=== PATIENT | female | born 1955 | race Caucasian/White ===

== ENCOUNTER 2016-07-09 10:04 | Inpatient (IN) | payer MEDICARE, MEDICAID ==
[~2016-07-09] VITALS: Ht 165.1 cm; Wt 76.7 kg
[~2016-07-09 10:04] MED LIST: DSS100 PO; HALO5 PO; LEVO25TA9 PO; LOVA20 PO; OLAN20TA2 PO; OXYB5 PO
[2016-07-09 16:36] VITALS: BP 120/82
[2016-07-09] MEDS ORDERED: ZOLPIDEM TARTRATE 10 MG TABLET PO PRN (17:15)
[2016-07-09 17:30] VITALS: BP 124/74
[2016-07-09] MEDS ORDERED: GLUCAGON,HUMAN RECOMBINANT 1 MG VIAL IM PRN (19:30)
[2016-07-09 19:39] LABS: GLUCOSE,POINT OF CARE 119 MG/DL (70-110)
[2016-07-09] MEDS: OLANZapine 10 MG TABLET PO SCH (20:54)
[2016-07-09] MEDS: HALOPERIDOL 5 MG TABLET PO SCH (20:54)
[2016-07-09] MEDS: LOVASTATIN 20 MG TABLET PO SCH (22:01)
[2016-07-10] MEDS ORDERED: -PHARMACY VACCINE NOTE- MISC ONE ×2 (00:15)
[2016-07-10] MEDS ORDERED: PNEUMOCOCCAL VACCINE POLYVALENT 0.5 ML VIAL [PPSV23] IM ONE (00:15)
[2016-07-10] MEDS: LEVOTHYROXINE SODIUM 100 MCG TABLET PO SCH (06:47)
[2016-07-10 06:55] VITALS: BP 130/72
[2016-07-10 07:04] LABS: GLUCOSE,POINT OF CARE 103 MG/DL (70-110)
[2016-07-10] MEDS ORDERED: CloNIDine HCL 0.1 MG TABLET PO PRN (07:30)
[2016-07-10] MEDS ORDERED: ACETAMINOPHEN 325 MG TABLET PO PRN (07:30)
[2016-07-10] MEDS ORDERED: BENZOCAINE/MENTHOL LOZENGE MM PRN (07:30)
[2016-07-10] MEDS ORDERED: LOPERAMIDE HCL 2 MG CAPSULE PO PRN (07:30)
[2016-07-10] MEDS ORDERED: ALBUTEROL SULFATE HFA 90 MCG/PUFF 8 GM INHALER IH PRN (07:30)
[2016-07-10] MEDS ORDERED: ONDANSETRON HCL 4 MG TABLET PO PRN (07:30)
[2016-07-10] MEDS ORDERED: MAGNESIUM HYDROXIDE SUSPENSION 30 ML UDCUP PO PRN (07:30)
[2016-07-10] MEDS ORDERED: IBUPROFEN 600 MG TABLET PO PRN (07:30)
[2016-07-10] MEDS ORDERED: PETROLATUM,WHITE 71 GM JELLY TP PRN (07:30)
[2016-07-10] MEDS ORDERED: MAG HYDROX/AL HYDROX/SIMETH ES 30 ML SUSPENSION UDCUP PO PRN (07:30)
[2016-07-10] MEDS ORDERED: BACITRACIN 28.4 GM OINTMENT TP PRN (07:30)
[2016-07-10 08:05] LABS: BASOPHILS # (AUTO) 0.04 K/uL (0.00-0.20); BASOPHILS % (AUTO) 0.6 % (0.0-2.0); EOSINOPHILS # (AUTO) 0.42 K/uL (0.00-0.70); EOSINOPHILS % (AUTO) 6.73 % (1.0-6.0); HEMATOCRIT 41.9 % (36-46); HEMOGLOBIN 13.9 g/dL (12.0-16.0); LYMPHOCYTES # (AUTO) 1.7 K/uL (1.0-4.8); LYMPHOCYTES % (AUTO) 27.3 % (22.0-44.0); MEAN CORPUSCULAR HEMOGLOBIN 31.1 pg (26.0-34.0); MEAN CORPUSCULAR HGB CONC 33.3 G/dL (31.0-37.0); MEAN CORPUSCULAR VOLUME 94 fL (80-100); MONOCYTES # (AUTO) 0.6 K/uL (0.1-1.0); MONOCYTES % (AUTO) 10.2 % (2.0-9.0); NEUTROPHILS # (AUTO) 3.5 K/uL (1.8-7.7); NEUTROPHILS % (AUTO) 55.2 % (40.0-70.0); PLATELET COUNT (AUTO) 193 K/uL (150-450); RED BLOOD CELL COUNT(AUTO) 4.48 MIL/uL (4.00-5.20); WHITE BLOOD COUNT (AUTO) 6.3 K/uL (4.5-11.0)
[2016-07-10 08:28] LABS: HEMOGLOBIN A1C 5.5 % (4.5-6.2)
[2016-07-10 08:31] VITALS: BP 125/71
[2016-07-10 08:39] LABS: ANION GAP 8 mmol/L (8-16); CARBON DIOXIDE 28 mmol/L (22-29); CHLORIDE 107 mmol/L (98-107); SODIUM SERUM 143 mmol/L (136-145)
[2016-07-10 08:40] LABS: ALANINE AMINOTRANSFERASE 24 U/L (12-78); ALBUMIN 3.1 g/dL (3.4-5.0); ASPARTATE AMINOTRANSFERASE 22 U/L (15-37); BILIRUBIN,TOTAL 0.2 mg/dL (0.1-1.0); CALCIUM, TOTAL 8.6 mg/dL (8.8-10.5); CREATININE 0.89 mg/dL (0.60-1.30); GLOMERULAR FILTR. RATE CALC > 60 mL/min (>60); THYROID STIMULATING HORMONE 7.12 uIU/mL (0.36-3.74); TOTAL PROTEIN, SERUM 6.4 g/dL (6.4-8.2); UREA NITROGEN, BLOOD 17 mg/dL (7-18)
[2016-07-10] MEDS: CHOLECALCIFEROL (VIT D3) 1,000 UNITS TABLET PO SCH (09:39)
[2016-07-10] MEDS: DOCUSATE SODIUM 100 MG CAPSULE PO SCH (09:39)
[2016-07-10] MEDS: OXYBUTYNIN CHLORIDE 5 MG TABLET PO SCH ×2 (09:39→16:35)
[2016-07-10] MEDS: HALOPERIDOL 5 MG TABLET PO SCH ×2 (09:39→16:35)
[2016-07-10] MEDS: NYSTATIN 15 GM POWDER BOTTLE TP SCH ×2 (09:41→16:44)
[2016-07-10 16:28] VITALS: BP 122/96
[2016-07-10 16:52] LABS: GLUCOSE,POINT OF CARE 107 MG/DL (70-110)
[2016-07-10] MEDS: LORazepam 2 MG TABLET PO PRN (17:01)
[2016-07-10] MEDS: OLANZapine 10 MG TABLET PO SCH (20:22)
[2016-07-10] MEDS: LOVASTATIN 20 MG TABLET PO SCH (20:22)
[2016-07-11 06:22] LABS: GLUCOSE,POINT OF CARE 85 MG/DL (70-110)
[2016-07-11] MEDS: LEVOTHYROXINE SODIUM 100 MCG TABLET PO SCH (06:24)
[2016-07-11 08:04] VITALS: BP 130/76
[2016-07-11] MEDS: NYSTATIN 15 GM POWDER BOTTLE TP SCH ×2 (09:41→16:35)
[2016-07-11] MEDS: HALOPERIDOL 5 MG TABLET PO SCH ×2 (09:41→16:35)
[2016-07-11] MEDS: CHOLECALCIFEROL (VIT D3) 1,000 UNITS TABLET PO SCH (09:41)
[2016-07-11] MEDS: DOCUSATE SODIUM 100 MG CAPSULE PO SCH (09:41)
[2016-07-11] MEDS: LORazepam 2 MG TABLET PO PRN ×2 (09:42→16:58)
[2016-07-11] MEDS: OXYBUTYNIN CHLORIDE 5 MG TABLET PO SCH ×2 (09:42→16:35)
[2016-07-11 16:10] VITALS: BP 127/76
[2016-07-11 16:46] LABS: GLUCOSE,POINT OF CARE 135 MG/DL (70-110)
[2016-07-11] MEDS: LOVASTATIN 20 MG TABLET PO SCH (20:14)
[2016-07-11] MEDS: OLANZapine 10 MG TABLET PO SCH (20:14)
[2016-07-12 06:12] LABS: GLUCOSE,POINT OF CARE 103 MG/DL (70-110)
[2016-07-12] MEDS: LEVOTHYROXINE SODIUM 100 MCG TABLET PO SCH (06:21)
[2016-07-12 07:17] VITALS: BP 125/78
[2016-07-12 08:28] VITALS: BP 125/78
[2016-07-12] MEDS: CHOLECALCIFEROL (VIT D3) 1,000 UNITS TABLET PO SCH (08:32)
[2016-07-12] MEDS: NYSTATIN 15 GM POWDER BOTTLE TP SCH ×2 (08:32→16:10)
[2016-07-12] MEDS: DOCUSATE SODIUM 100 MG CAPSULE PO SCH (08:32)
[2016-07-12] MEDS: OXYBUTYNIN CHLORIDE 5 MG TABLET PO SCH ×2 (08:32→16:10)
[2016-07-12] MEDS: HALOPERIDOL 5 MG TABLET PO SCH ×2 (08:32→16:10)
[2016-07-12] MEDS: LORazepam 2 MG TABLET PO PRN ×2 (08:33→17:27)
[2016-07-12 16:00] VITALS: BP 128/71
[2016-07-12] MEDS: INSULIN ASPART 100 UNITS/ML SQ PRN (16:51)
[2016-07-12 17:02] LABS: GLUCOSE,POINT OF CARE 145 MG/DL (70-110)
[2016-07-12] MEDS: OLANZapine 10 MG TABLET PO SCH (20:12)
[2016-07-12] MEDS: LOVASTATIN 20 MG TABLET PO SCH (20:12)
[2016-07-13 06:13] LABS: GLUCOSE,POINT OF CARE 95 MG/DL (70-110)
[2016-07-13] MEDS: LEVOTHYROXINE SODIUM 100 MCG TABLET PO SCH (06:21)
[2016-07-13 07:19] VITALS: BP 120/72
[2016-07-13] MEDS: NYSTATIN 15 GM POWDER BOTTLE TP SCH ×2 (08:05→16:24)
[2016-07-13] MEDS: OXYBUTYNIN CHLORIDE 5 MG TABLET PO SCH ×2 (08:05→16:13)
[2016-07-13] MEDS: DOCUSATE SODIUM 100 MG CAPSULE PO SCH (08:05)
[2016-07-13] MEDS: HALOPERIDOL 5 MG TABLET PO SCH ×2 (08:06→16:13)
[2016-07-13] MEDS: CHOLECALCIFEROL (VIT D3) 1,000 UNITS TABLET PO SCH (08:06)
[2016-07-13 08:29] LABS: THYROID STIMULATING HORMONE 5.25 uIU/mL (0.36-3.74)
[2016-07-13 08:48] VITALS: BP 143/74
[2016-07-13] MEDS: LORazepam 2 MG TABLET PO PRN (13:57)
[2016-07-13] MEDS: HALOPERIDOL 5 MG TABLET PO PRN (13:57)
[2016-07-13 16:10] VITALS: BP 140/87
[2016-07-13 16:31] LABS: GLUCOSE,POINT OF CARE 192 MG/DL (70-110)
[2016-07-13 17:12] LABS: GLUCOSE,POINT OF CARE 151 MG/DL (70-110)
[2016-07-13] MEDS: INSULIN ASPART 100 UNITS/ML SQ PRN (17:38)
[2016-07-13] MEDS: OLANZapine 10 MG TABLET PO SCH (20:08)
[2016-07-13] MEDS: LOVASTATIN 20 MG TABLET PO SCH (20:09)
[2016-07-14 06:02] LABS: GLUCOSE,POINT OF CARE 100 MG/DL (70-110)
[2016-07-14] MEDS: LEVOTHYROXINE SODIUM 100 MCG TABLET PO SCH (06:11)
[2016-07-14 06:26] VITALS: BP 121/78
[2016-07-14 08:15] VITALS: BP 139/77
[2016-07-14] MEDS: HALOPERIDOL 5 MG TABLET PO SCH ×2 (09:09→16:50)
[2016-07-14] MEDS: CHOLECALCIFEROL (VIT D3) 1,000 UNITS TABLET PO SCH (09:09)
[2016-07-14] MEDS: NYSTATIN 15 GM POWDER BOTTLE TP SCH ×2 (09:09→17:00)
[2016-07-14] MEDS: DOCUSATE SODIUM 100 MG CAPSULE PO SCH (09:09)
[2016-07-14] MEDS: OXYBUTYNIN CHLORIDE 5 MG TABLET PO SCH ×2 (09:09→16:50)
[2016-07-14] MEDS: LORazepam 2 MG TABLET PO PRN ×2 (09:10→16:53)
[2016-07-14 16:31] VITALS: BP 126/74
[2016-07-14 16:37] LABS: GLUCOSE,POINT OF CARE 124 MG/DL (70-110)
[2016-07-14] MEDS: LOVASTATIN 20 MG TABLET PO SCH (20:03)
[2016-07-14] MEDS: OLANZapine 10 MG TABLET PO SCH (20:03)
[2016-07-15] MEDS: LEVOTHYROXINE SODIUM 100 MCG TABLET PO SCH (06:27)
[2016-07-15 07:02] LABS: GLUCOSE,POINT OF CARE 109 MG/DL (70-110)
[2016-07-15 07:17] VITALS: BP 124/71
[2016-07-15] MEDS: NYSTATIN 15 GM POWDER BOTTLE TP SCH ×2 (08:10→16:43)
[2016-07-15 08:15] VITALS: BP 150/84
[2016-07-15] MEDS: OXYBUTYNIN CHLORIDE 5 MG TABLET PO SCH ×2 (08:16→16:40)
[2016-07-15] MEDS: HALOPERIDOL 5 MG TABLET PO SCH ×2 (08:16→16:40)
[2016-07-15] MEDS: CHOLECALCIFEROL (VIT D3) 1,000 UNITS TABLET PO SCH (08:16)
[2016-07-15] MEDS: DOCUSATE SODIUM 100 MG CAPSULE PO SCH (08:16)
[2016-07-15] MEDS: LORazepam 2 MG TABLET PO PRN ×4 (08:17→23:47)
[2016-07-15] MEDS: HALOPERIDOL 5 MG TABLET PO PRN (13:24)
[2016-07-15 16:36] VITALS: BP 136/78
[2016-07-15 17:12] LABS: GLUCOSE,POINT OF CARE 110 MG/DL (70-110)
[2016-07-15] MEDS: LOVASTATIN 20 MG TABLET PO SCH (20:58)
[2016-07-15] MEDS: OLANZapine 10 MG TABLET PO SCH (20:58)
[2016-07-16 00:10] VITALS: BP 114/82
[2016-07-16] MEDS: LEVOTHYROXINE SODIUM 100 MCG TABLET PO SCH (06:28)
[2016-07-16 07:02] LABS: GLUCOSE,POINT OF CARE 128 MG/DL (70-110)
[2016-07-16 08:32] VITALS: BP 127/76
[2016-07-16] MEDS ORDERED: CHOL100062 PO (08:32)
[2016-07-16] MEDS: DOCUSATE SODIUM 100 MG CAPSULE PO SCH (10:10)
[2016-07-16] MEDS: OXYBUTYNIN CHLORIDE 5 MG TABLET PO SCH (10:10)
[2016-07-16] MEDS: HALOPERIDOL 5 MG TABLET PO SCH (10:11)
[2016-07-16] MEDS: CHOLECALCIFEROL (VIT D3) 1,000 UNITS TABLET PO SCH (10:11)
[2016-07-16] MEDS: NYSTATIN 15 GM POWDER BOTTLE TP SCH (10:11)
== END 2016-07-16 13:30 | disposition home or self-care (01) | DRG 885 ==
LOC: B3A 17:19 → B2S 07-15 08:38
PROVIDERS: ADMIT Psychiatry & Neurology Psychiatry; ATTEND Psychiatry & Neurology Psychiatry
PROC: 3E0234Z Introduction of Serum, Toxoid and Vaccine into Muscle, Percutaneous Approach (ICD-10-PCS; principal; 2016-07-10)
DX: F20.0 Paranoid schizophrenia (principal); J44.9 Chronic obstructive pulmonary disease, unspecified; E03.9 Hypothyroidism, unspecified; K21.9 Gastro-esophageal reflux disease without esophagitis; G47.00 Insomnia, unspecified; E55.9 Vitamin D deficiency, unspecified; B35.3 Tinea pedis; R32 Unspecified urinary incontinence; M19.90 Unspecified osteoarthritis, unspecified site; E78.5 Hyperlipidemia, unspecified; F17.200 Nicotine dependence, unspecified, uncomplicated; Z56.0 Unemployment, unspecified; Z28.21 Immunization not carried out because of patient refusal; Z91.012 Allergy to eggs
CPT/HCPCS: 82962; 83036; 84436; 84439; 84443; 90471

== ENCOUNTER 2016-07-25 21:48 | Emergency (ER) | payer MEDICARE, OTHER ==
[~2016-07-25] VITALS: Ht 167.6 cm; Wt 72.7 kg
[~2016-07-25 21:48] MED LIST changes: +CHOL100062 PO
[2016-07-25 23:14] LABS: BASOPHILS % (AUTO) 0.6 % (0.0-2.0); EOSINOPHILS % (AUTO) 7.2 % (1.0-6.0); HEMATOCRIT 41.9 % (36-46); HEMOGLOBIN 13.5 g/dL (12.0-16.0); LYMPHOCYTES % (AUTO) 24.7 % (22.0-44.0); MEAN CORPUSCULAR HEMOGLOBIN 29.9 pg (26.0-34.0); MEAN CORPUSCULAR HGB CONC 32.2 G/dL (31.0-37.0); MEAN CORPUSCULAR VOLUME 93 fL (80-100); MONOCYTES # (AUTO) 0.5 K/uL (0.1-1.0); MONOCYTES % (AUTO) 6.6 % (2.0-9.0); NEUTROPHILS % (AUTO) 60.9 % (40.0-70.0); PLATELET COUNT (AUTO) 202 K/uL (150-450); RED BLOOD CELL COUNT(AUTO) 4.51 MIL/uL (4.00-5.20); RED CELL DISTRIBUTION WIDTH 13.8 % (11.5-14.5); WHITE BLOOD COUNT (AUTO) 8.2 K/uL (4.5-11.0)
[2016-07-25 23:22] LABS: ANION GAP 9 mmol/L (8-16); CALCIUM, TOTAL 8.9 mg/dL (8.8-10.5); CARBON DIOXIDE 26 mmol/L (22-29); CHLORIDE 105 mmol/L (98-107); CREATININE 1.07 mg/dL (0.60-1.30); GLOMERULAR FILTR. RATE CALC 52 mL/min (>60); POTASSIUM 3.6 mmol/L (3.5-5.1); SODIUM SERUM 140 mmol/L (136-145); UREA NITROGEN, BLOOD 12 mg/dL (7-18)
[2016-07-25 23:29] LABS: ALANINE AMINOTRANSFERASE 20 U/L (12-78); ALBUMIN 3.3 g/dL (3.4-5.0); ASPARTATE AMINOTRANSFERASE 24 U/L (15-37); BILIRUBIN,TOTAL 0.2 mg/dL (0.1-1.0); TOTAL PROTEIN, SERUM 7.1 g/dL (6.4-8.2)
[2016-07-26] MEDS ORDERED: HALOPERIDOL 5 MG TABLET PO ONE (00:45)
[2016-07-26 02:04] VITALS: BP 135/82
== END 2016-07-26 02:06 | disposition home or self-care (01) ==
LOC: EMS 21:50
DX: F25.9 Schizoaffective disorder, unspecified (principal); F31.9 Bipolar disorder, unspecified; Z91.012 Allergy to eggs
CPT/HCPCS: 36415; 80053; 80307; 85025; 99284; G0480